=== PATIENT | female | born 1990 | race Caucasian/White ===

== ENCOUNTER 2022-06-17 11:15 | Emergency (ER) | payer OTHER ==
[~2022-06-17] VITALS: Ht 162.6 cm; Wt 68.2 kg
[2022-06-17] MEDS ORDERED: CYCL-448 PO (14:24)
[2022-06-17 14:30] VITALS: BP 121/62
== END 2022-06-17 14:39 | disposition home or self-care (01) ==
LOC: EMS 11:19
DX: M54.50 Low back pain, unspecified (principal); M54.2 Cervicalgia; Z98.890 Other specified postprocedural states; V98.8XXA Other specified transport accidents, initial encounter; Y93.89 Activity, other specified; Y92.89 Other specified places as the place of occurrence of the external cause; Y99.8 Other external cause status
CPT/HCPCS: 72040; 72100; 99284; Z7502